=== PATIENT | female | born 1990 | race Caucasian/White ===

== ENCOUNTER → 2016-12-01 | Outpatient (CLI) | payer OTHER | END | disposition home or self-care (01) | LOC: C.PAPS 09:44 | PROVIDERS: ATTEND Obstetrics & Gynecology | DX: Z12.4 Encounter for screening for malignant neoplasm of cervix (principal); Z87.42 Personal history of other diseases of the female genital tract ==

== ENCOUNTER → 2016-12-01 | Outpatient (CLI) | payer OTHER | END | disposition home or self-care (01) | LOC: C.LABSPEC 17:41 | PROVIDERS: ATTEND Obstetrics & Gynecology | DX: L29.8 Other pruritus (principal) ==

== ENCOUNTER → 2017-02-12 | Outpatient (CLI) | payer OTHER | END | disposition home or self-care (01) | LOC: C.LABSPEC 18:09 | PROVIDERS: ATTEND Obstetrics & Gynecology | DX: N76.0 Acute vaginitis (principal) ==

== ENCOUNTER 2021-10-04 11:37 | Inpatient (IN) ==
[2021-10-04] MEDS ORDERED: LACTATED RINGER'S 1,000 ML IV PRN (11:47)
[2021-10-04] MEDS ORDERED: OXYTOCIN 30 UNITS/500 ML BAG IV PRN ×2 (11:47→13:18)
--- NOTE | 2021-10-04 11:52 | History & Physical Report ---
Date of Service October 04, 2021 Assessment & Plan (1) Polyhydramnios: (2) labor in third trimester: (3) Need for rhogam due to Rh negative mother: Plan: admit, iv, labs. fhts categ 2. likely 2nd stage soon. she would like to get regional anesth if possible. History of Present Illness Chief Complaint: regular ctx Primary Care Provider: Aletha Guido MD 31yo at 36+wks liliana presents to L&D with complaints of regular ctx and possible leaking fluid since overnight. She called this am stating that she thinks her water broke overnight. By time she called noted ctx q2min and 40sec long. She was advised to come to L&D. On arrival per nurse 8cm with bulging membranes. PNC c/b 1. Prior ptd at 24wks, declined janina 2. Polyhydramnios, unexplained. 3. arrhythmia, normal echo the best that they could see 4. Obesity 5. Rh neg. Allergies Allergy/AdvReac Type Severity Reaction Status Date / Time No Known Drug Allergies Allergy Unknown Verified 10/03/21 09:58 Home Medications Medication Instructions Recorded Confirmed Type prenat.vits,fely,veg-heof-wfama 1 tab PO DAILY 03/10/21 10/03/21 History sertraline 100 mg tablet 100 mg PO DAILY 05/21/21 10/03/21 History dxznodxivs-lwvvlhdbzzrpx-ymaviuqo 1 cap PO Q6H PRN #20 cap 09/23/21 10/03/21 Rx 50 mg-300 mg-40 mg capsule (Fioricet) Patient History Medical History (Updated 10/04/21 @ 11:58 by Hallie Montejo MD, FACOG) ASCUS with positive high risk HPV Bacterial conjunctivitis of both eyes ENRICO II (cervical intraepithelial neoplasia II) Depression Depressive disorder Exposure to COVID-19 virus HPV in female Subacute vulvitis Urinary tract infection Varicella vaccination Vulvovaginitis Surgical History History of salpingectomy left with excision of ectopic Family History Mother Alcohol abuse Depression Father Depression Sister Depression Drug abuse Grandfather (Paternal) Dyslipidemia Hypertension Diabetes Grandmother (Paternal) Heart disease Uterine cancer Denies family history of Ovarian cancer Prostate cancer Myocardial infarction Breast cancer Colorectal cancer Social History (Updated 06/13/21 @ 13:49 by Kay Ocampo LPN) Smoking Status: Never smoker Years Smoked: 2; Second Hand Exposure: No; Hx Alcohol Use: Yes Hx Substance Use: No Preferred Language: Macedonian Communication Ability: Effective Steel Roller Required: No marital status: marital status details: Suhail Reyes (31) [phone] Current Living Situation: Spouse and Family Current Living Situation Comment: lives with spouse, 2 sons, no pets current occupational status: employed current occupation: [employer] How many Children do You have: 3 Feels Safe at Home: Yes Childhood Exposure to Second-Hand Smoke: Yes caffeine: Yes Dental Care, Regularly: Yes Physical Activity Frequency: Daily Seatbelt Use: always Sunscreen Use: Yes Review of Systems as per Subjective / HPI Physical Exam Constitutional: WD/WN, vitals as above Neurologic: grossly normal Psychiatric: A+Ox3, euthymic affect Genitourinary: OB Exam Monitor Tracing: + external FHT monitor used, + external uterine monitor used (q3), + category II (variables with ctx. ) and + normal FHT variability Results & Data ([facility]) Vital Signs (Past 12 Hours) Vital Signs BP 10/04/21 11:42 121/65 Code Status & VTE Plan VTE Prophylaxis Plan VTE Prophylaxis will be ordered: No Coding Level of Care Code None Diagnoses Polyhydramnios O40.9XX0 labor in third trimester O60.03 Need for rhogam due to Rh negative mother Z29.13
[2021-10-04] MEDS ORDERED: fentaNYL citrate 100 MCG/2 ML VIAL ONE (12:13)
[2021-10-04] MEDS ORDERED: SODIUM CHLORIDE 0.9% INJ 10 ML VIAL ONE (12:13)
[2021-10-04] MEDS ORDERED: fentaNYL 2MCG/ML ROPIVACAINE 1.25MG/ML 100 ML BAG EPI ONE (12:13)
[2021-10-04] MEDS ORDERED: BUPIVACAINE 0.25% 30 ML VIAL ONE (12:13)
[2021-10-04] MEDS ORDERED: ePHEDrine sulfate 50 MG/ML AMP ONE (12:13)
[2021-10-04] MEDS ORDERED: PENICILLIN G POTASSIUM 6 MU in DEXTROSE 5% 250 ML IV ONE (12:15)
[2021-10-04] MEDS ORDERED: NALOXONE HCL 0.4 MG/1 ML VIAL/CARP IV PRN (12:21)
[2021-10-04] MEDS ORDERED: diphenhydrAMINE 50 MG/ML VIAL IV PRN (12:21)
[2021-10-04] MEDS ORDERED: fentaNYL 2MCG/ML ROPIVACAINE 1.25MG/ML 100 ML BAG EPI PRN (12:21)
[2021-10-04] MEDS ORDERED: NALOXONE HCL 1 MG in SODIUM CHLORIDE 0.9% 1000ML 1,000 ML IV PRN (12:21)
[2021-10-04] MEDS ORDERED: ePHEDrine sulfate 50 MG/ML AMP IV PRN (12:21)
[2021-10-04] MEDS ORDERED: NALBUPHINE HCL INJ 10 MG/ML AMP IV PRN (12:21)
--- NOTE | 2021-10-04 12:21 | Anesthesiology Consultation ---
Date of Service October 04, 2021 Assessment & Plan ASA ASA2 Proposed Anesthesia Anesthesia Type: Labor Epidural Risk / Benefits Reviewed With: PT / POA / Parent / Guardian, Accepts Plan and Informed Consent Obtained History Allergies Allergy/AdvReac Type Severity Reaction Status Date / Time No Known Drug Allergies Allergy Unknown Verified 10/03/21 09:58 Medications Home Medications Medication Instructions Recorded Confirmed Last Taken prenat.vits,fely,hui-iuyr-jikkz 1 tab PO DAILY 03/10/21 10/03/21 Unknown sertraline 100 mg tablet 100 mg PO DAILY 05/21/21 10/03/21 Unknown Active Medications Generic Name Dose Route Start Last Admin Trade Name Freq PRN Reason Stop Dose Admin Lactated Ringer's 1,000 mls @ 125 mls/hr 10/04/21 11:47 10/04/21 12:00 Lr IV 10/06/21 11:46 999 mls/hr .Q8H PRN Administration L&D Protocol Protocol Past Medical History Medical History ASCUS with positive high risk HPV Bacterial conjunctivitis of both eyes ENRICO II (cervical intraepithelial neoplasia II) Depression Depressive disorder Exposure to COVID-19 virus HPV in female Subacute vulvitis Urinary tract infection Varicella vaccination Vulvovaginitis Exercise / Class Metabolic Activity II 4-5 Yardwork/Stairs/Walk up hill Past Family History Family History Mother Alcohol abuse Depression Father Depression Sister Depression Drug abuse Grandfather (Paternal) Dyslipidemia Hypertension Diabetes Grandmother (Paternal) Heart disease Uterine cancer Denies family history of Ovarian cancer Prostate cancer Myocardial infarction Breast cancer Colorectal cancer Past Surgical History Surgical History History of salpingectomy left with excision of ectopic [place] teeth removed Past Anesthesia History No Hx of Anesthesia Complications and No Family Hx of Anesthesia Complications History of PONV No Hx of PONV and No Hx of Motion Sickness Social History Smoking Status: Never smoker Hx Alcohol Use: Yes Hx Substance Use: No substance use type: does not use Review of Systems denies fever/cough/ colds/ chest pain/ SOB/ SULEMAN denies SULEMAN Physical Exam Vital Signs Last Vital Signs Temp 36.5 C 10/04/21 11:42 Resp 20 10/04/21 11:42 BP 121/65 10/04/21 11:42 ENMT Mouth: no TMJ abnormality and no dentition abnormality Thyromental Distance: > or= 3.5 Finger Breadths Mallampati Class: II Neck neck extension not limited Respiratory normal respiratory effort; no respiratory distress Auscultation: lungs clear to auscultation bilaterally Cardiovascular Rate/Rhythm: regular rate and regular rhythm Neurologic moves all extremities Psychiatric Orientation: alert and oriented x 3
[2021-10-04 12:23] LABS: Hemoglobin 12.8 g/dL (12.0-16.0); Mean Corpuscular Hemoglobin 28.1 pg (25-34); Mean Corpuscular Hgb Conc 32.8 g/dL (32-36); Mean Corpuscular Volume 85.7 fL (80-100); Mean Platelet Volume 11.6 fL (7.4-10.4); Platelet Count 209 K/uL (130-400); RDW Coefficient of Variation 14.9 % (11.5-14.5); Red Blood Count 4.55 M/uL (4.2-5.4); White Blood Count 9.63 K/uL (4.8-10.8)
[2021-10-04] MEDS ORDERED: LIDOCAINE 1% LOCAL 20 ML VIAL ONE (12:37)
[2021-10-04] MEDS ORDERED: BUTORPHANOL TARTRATE 1 MG/ML VIAL ONE (12:43)
[2021-10-04] MEDS ORDERED: miSOPROStoL 200 MCG TAB ONE (12:50)
[2021-10-04] MEDS ORDERED: CARBOPROST TROMETHAMINE 250 MCG/ML AMPUL ONE (12:51)
--- NOTE | 2021-10-04 13:01 | Delivery Summary ---
Vaginal Delivery Summary Date of Service October 04, 2021 Vaginal Delivery Summary and 2nd Degree LAC The patient dilated to complete and pushed to deliver a viable male infant Apgars 7 and 9 via over 2nd degree perineal laceration. Mouth and nose bulb suctioned at perineum. Loose nuchal delivered throught. Shoulders and body delivered with ease. Infant was vigorous and crying at . Cord clamped at 30 seconds of life and to maternal abdomen where the cord was then doubly clamped and cut. Placenta delivered spontaneously and intact, three-vessel cord. Hemostasis not achieved uterine massage and as iv pitocin being hung, brisk bleeding noted. Rectal cytotec 800mcg placed. Uterus swept x 1 with no retained products. BP taken and hemabate IM given. With dilute pit infusing bleeding is more controlled, hemostasis becoming adequate. Cervix and sulci intact. Laceration repaired in usual fashion with 3-0 vicryl. EBL 600 cc. Mother and baby stable in recovery. [facility] Vaginal Delivery Charge Delivery Type Details: and 2nd Degree LAC
[2021-10-04] MEDS ORDERED: HYDROCORTISONE ACETATE 25 MG SUPP PR PRN (13:18)
[2021-10-04] MEDS ORDERED: BENZOCAINE 20% AER SPR 82.5 GM CAN EXT PRN (13:18)
[2021-10-04] MEDS ORDERED: DIPHTHERIA/TETANUS/PERTUSSIS 0.5 ML SYR/VIAL IM ONE (13:18)
[2021-10-04] MEDS ORDERED: miSOPROStoL 200 MCG TAB PR ONE (13:18)
[2021-10-04] MEDS ORDERED: oxyCODONE/ACETAMINOPHEN 5mg/325mg TAB PO PRN (13:18)
[2021-10-04] MEDS ORDERED: CARBOPROST TROMETHAMINE 250 MCG/ML AMPUL IM ONE (13:18)
[2021-10-04] MEDS ORDERED: OXYTOCIN 20 UNITS in LACTATED RINGER'S 1,000 ML IV SCH (13:18)
[2021-10-04] MEDS ORDERED: BUTORPHANOL TARTRATE 1 MG/ML VIAL IV ONE (13:25)
[2021-10-04] MEDS: IBUPROFEN 600 MG TAB PO PRN ×2 (14:17→20:26)
[2021-10-04] MEDS: DOCUSATE SODIUM 100 MG CAP PO SCH (20:26)
[2021-10-04] MEDS: ACETAMINOPHEN 325 MG TAB PO PRN (23:10)
[2021-10-05] MEDS: IBUPROFEN 600 MG TAB PO PRN ×4 (00:44→23:27)
[2021-10-05 07:12] LABS: Hematocrit (blood only) 36.3 % (37-47); Hemoglobin 11.9 g/dL (12.0-16.0)
[2021-10-05] MEDS: PRENATAL VITAMIN 1 TAB PO SCH ×2 (08:40→08:42)
[2021-10-05] MEDS: DOCUSATE SODIUM 100 MG CAP PO SCH ×2 (08:40→20:04)
[2021-10-05] MEDS: SERTRALINE HCL 100 MG TABLET PO SCH (08:40)
--- NOTE | 2021-10-05 10:30 | Obstetrical Progress Note ---
Date of Service October 05, 2021 Assessment & Plan (1) examination following vaginal delivery: stable, routine care. breast/rh neg, baby rh neg/ri. Day #:: 1 Subjective Ambulation: ambulating normally Voiding: no voiding problems Diet Tolerance:: regular diet Lochia:: Small Feeding Type:: breast feeding no pain issues Constitutional: + as per Subjective / HPI Physical Exam Constitutional WD/WN, vitals as above Respiratory normal respiratory effort, lungs clear to auscultation Cardiovascular Rate/Rhythm: regular rate and regular rhythm Gastrointestinal (Abdomen) Inspection/Auscultation: abdomen normal to inspection Percussion/Palpation: abdomen soft Fundus firm 2cm down Musculoskeletal nt calves no edema Neurologic grossly normal Psychiatric A+Ox3, euthymic affect Results & Data ([facility]) Vital Signs (Past 12 Hours) Vital Signs Temp Pulse Resp BP Pulse Ox 10/05/21 03:15 97.9 F 79 16 101/63 97 10/04/21 23:04 98.4 F 95 H 16 131/74 97
[2021-10-05] MEDS: ACETAMINOPHEN 325 MG TAB PO PRN (20:04)
--- NOTE | 2021-10-06 06:58 | Obstetrical Progress Note ---
Date of Service October 06, 2021 Assessment & Plan (1) examination following vaginal delivery: Plan: 31yo PPD 2 s/p at 36week 4 days -Continue routine care -Vitals reviewed- HDS, afebrile -Encourage ambulation, regular diet -Pain control with ibuprofen, acetaminophen PRN -Encourage -Hgb 11.9 -F/u in 6 weeks with OB Admission and Anticipated Discharge Date Admission Date: October 04, 2021 Supervising Physician Co-Signing Physician Notes Resident Physician Supervision Note: I was present with Dr. Foster during the history and exam. I discussed the case with the resident and agree with the findings and plan as documented in the note. Any exceptions or clarifications are listed here: doing well and ready for dc home. instructions reviewed. plan 6wk pp check. Documented By: Hallie Montejo MD, FACOG Subjective Ambulation: yes Voiding: yes Passing Gas: yes BM: yes Diet Tolerance: regular w/o N/V Lochia: small Feeding Type: Current Pain Level(1-10): 4 Review of Systems Review of Systems: Denies fevers/chills. Denies dyspnea, cough. Denies chest pain. Denies breast discharge. Denies dysuria. Mild headache. Denies back pain. Physical Exam Physical Exam: General: Alert, oriented, no acute distress Cardiac: Regular rate and rhythm, normal S1, S2. No murmurs appreciated. Respiratory: Clear to auscultation b/l. No wheezes or crackles. No increased work of breathing or accessory muscle use Abdomen: Soft, nontender, nondistended. Fundus firm and palpable at 1 cm below umbilicus. No guarding or rebound. Skin: No rashes or lesions Extremities: Warm, dry, well-perfused. No lower extremity edema, erythema or swelling. Results & Data ([facility]) Vital Signs (Past 12 Hours) Vital Signs Temp Pulse Resp BP Pulse Ox 10/05/21 23:20 36.6 C 73 18 97/60 L 99 10/05/21 19:55 36.7 C 89 18 106/66 97 Resident Activity Tracking Resident Involvement: Resident Care Provided Care Provided: OB Delivery
[2021-10-06] MEDS: IBUPROFEN 600 MG TAB PO PRN ×2 (07:25→12:24)
[2021-10-06] MEDS: DOCUSATE SODIUM 100 MG CAP PO SCH (08:40)
[2021-10-06] MEDS: PRENATAL VITAMIN 1 TAB PO SCH (08:40)
[2021-10-06] MEDS: SERTRALINE HCL 100 MG TABLET PO SCH (09:06)
== END 2021-10-06 13:00 | disposition home or self-care (01) | DRG 768 ==
LOC: OPB 11:37 → 4S1 11:38 → 4S2 15:56